=== PATIENT | male | born 1975 | race American Indian/Alaskan Native ===

== ENCOUNTER 2020-09-23 12:55 | Observation (INO) | payer SELFPAY ==
--- NOTE | 2020-09-23 13:04 | Event Note ---
ED Screening Note Date of service: 09/23/20 Time: 13:03 ED Screening Note: 45 yo male presents with CP. This initial assessment/diagnostic orders/clinical plan/treatment(s) is/are subject to change based on patients health status, clinical progression and re- assessment by fellow clinical providers in the ED. Further treatment and workup at subsequent clinical providers discretion. Patient/guardian urged not to elope from the ED as their condition may be serious if not clinically assessed and managed. Initial orders include: Cardiac Protocol.
[2020-09-23 13:21] LABS: Basophils # (Auto) 0.1 K/mm3 (0.0-0.1); Basophils % (Auto) 0.9 % (0.0-1.8); Eosinophils # (Auto) 0.1 K/mm3 (0.0-0.4); Eosinophils % (Auto) 0.6 % (0.0-4.3); Hematocrit 46.9 % (35.5-45.6); Hemoglobin 15.8 gm/dl (11.8-15.2); Lymphocytes # (Auto) 1.7 K/mm3 (1.2-5.4); Lymphocytes % (Auto) 18.5 % (13.4-35.0); Mean Corpuscular HGB Conc 34 % (32-34); Mean Corpuscular Volume 95 fl (84-94); Monocytes # (Auto) 0.7 K/mm3 (0.0-0.8); Monocytes % (Auto) 7.3 % (0.0-7.3); Platelet Count 249 K/mm3 (140-440); Red Blood Count 4.96 M/mm3 (3.65-5.03); Red Cell Distribution Width 13.7 % (13.2-15.2)
--- NOTE | 2020-09-23 13:25 | Emergency Department Report ---
ED Chest Pain HPI - General Chief Complaint: Chest Pain Stated Complaint: CHEST PAIN PUI?: No Time Seen by Provider: 09/23/20 13:20 Source: patient, RN notes reviewed Mode of arrival: Ambulatory Limitations: No Limitations - History of Present Illness Initial Comments: The patient was evaluated in the emergency department for symptoms described in the history of present illness. He/she was evaluated in the context of the [facility] COVID-19 pandemic, which necessitated consideration that the patient might be at risk for infection with the virus that causes COVID-19. Institutional protocols and algorithms that pertain to the evaluation of patients at risk for COVID-19 are in a state of rapid change based on information released by regulatory bodies including the CDC and federal and state organizations. These policies and algorithms were followed during the patient's care in the emergency department. Please note that these policies, procedures and recommendations changed on a rapid basis. Patient is a [id number] male, who works as a regional dedicated truck driver. He has no chronic medical conditions that he is aware of. He does not have a local primary care doctor. Patient believes he drove approximately 8000 miles in his truck in the past month. The patient presents to the ER today with a complaint of nontraumatic right- sided chest pain, that radiates to the back and shoulder. This is associated with shortness of breath. There is no vomiting or diaphoresis. There is no leg pain or leg swelling. No hematemesis or bright red blood per rectum. No urinary symptoms. No loss of taste or smell. No recent aspirin consumption. No cardiac risk ratification that he is aware of Patient does not have a formal diagnosis of sleep apnea that he is aware of. However, he reports that he snores quite loudly, and reports that sleep is not restful. He also reports that he occasionally falls asleep while watching TV or looking at a computer. MD Complaint: chest pain, other -: Sudden Onset: during rest Pain Location: substernal, right chest Pain Radiation: back, neck Severity: moderate Quality: aching Consistency: constant Improves With: nothing Worsens With: nothing Context: recent travel re: dyspnea Treatments Prior to Arrival: none Aspirin use within the Past 7 Days: (0) No - Related Data On Oral Contraceptives: No Previous Rx's Medication Instructions Recorded Last Taken Type Amlodipine Besylate [Norvasc] 5 mg PO QDAY #30 tablet 09/23/20 Unknown Rx Aspirin 325 mg PO QDAY #30 tablet 09/23/20 Unknown Rx Allergies Allergy/AdvReac Type Severity Reaction Status Date / Time No Known Allergies Allergy Unverified 09/23/20 13:00 Heart Score - HEART Score History: Moderately suspicious EKG: Non-specific Age: 45-65 Risk factors: 1-2 risk factors Troponin: < normal limit HEART Score: 4 - Critical Actions Critical Actions: 4-6 pts:12-16.6% risk of adverse cardiac event. Should be admitted ED Review of Systems ROS: Stated complaint: CHEST PAIN Other details as noted in HPI Constitutional: denies: fever, weakness Eyes: denies: eye discharge ENT: congestion Respiratory: shortness of breath Cardiovascular: chest pain, orthopnea Gastrointestinal: denies: abdominal pain, hematemesis, melena, hematochezia Genitourinary: denies: dysuria Musculoskeletal: back pain Neurological: weakness Hematological/Lymphatic: denies: easy bleeding ED Past Medical Hx - Past Medical History Previous Medical History?: No - Surgical History Past Surgical History?: No - Social History Smoking Status: Current Every Day Smoker Substance Use Type: Alcohol - Medications Home Medications: Home Medications Medication Instructions Recorded Confirmed Last Taken Type Amlodipine Besylate [Norvasc] 5 mg PO QDAY #30 tablet 09/23/20 Unknown Rx Aspirin 325 mg PO QDAY #30 tablet 09/23/20 Unknown Rx ED Physical Exam - General Limitations: No Limitations General appearance: alert, in no apparent distress, obese - Head Head exam: Present: atraumatic, normocephalic - Eye Eye exam: Present: normal appearance, EOMI. Absent: nystagmus - ENT ENT exam: Present: normal exam, normal orophraynx, mucous membranes moist, normal external ear exam - Neck Neck exam: Present: normal inspection, full ROM. Absent: tenderness, meningismus - Respiratory Respiratory exam: Present: normal lung sounds bilaterally. Absent: respiratory distress, wheezes, rales, rhonchi, stridor, decreased breath sounds - Cardiovascular Cardiovascular Exam: Present: normal rhythm, tachycardia, normal heart sounds. Absent: systolic murmur, diastolic murmur, rubs, gallop - GI/Abdominal GI/Abdominal exam: Present: soft. Absent: distended, tenderness, guarding, rebound, rigid, pulsatile mass - Rectal Rectal exam: Present: deferred - Extremities Exam Extremities exam: Present: normal inspection, full ROM, other (2+ pulses noted in the bilateral upper and lower extremities. There is no palpable cord. negative Homans sign. Muscular compartments are soft. The pelvis is stable.). Absent: calf tenderness - Back Exam Back exam: Present: normal inspection, full ROM. Absent: tenderness, CVA tenderness (R), CVA tenderness (L), paraspinal tenderness, vertebral tenderness - Neurological Exam Neurological exam: Present: alert, normal gait, other (No facial droop. Tongue midline. Extraocular movements intact bilaterally. Facial sensation intact to light touch in V1, V2, V3 distribution bilaterally. 5 and a 5 strength in 4 extremities. Sensation intact to light touch in 4 extremities.). Absent: motor sensory deficit - Psychiatric Psychiatric exam: Present: normal affect, normal mood - Skin Skin exam: Present: warm, dry, intact, normal color. Absent: rash ED Course Vital Signs 09/23/20 09/23/20 09/23/20 13:02 13:44 13:56 Temperature 98.8 F Pulse Rate 109 H 106 H 102 H Respiratory 18 19 Rate Blood Pressure 183/118 156/107 Blood Pressure 168/109 [Left] O2 Sat by Pulse 96 98 Oximetry - Reevaluation(s) Reevaluation #1: 09/23/20 14:08 Differential diagnosis, including but not limited to: Pulmonary embolism, pericarditis, acute coronary syndrome, aortic disease Assessment and plan: 45-year-old gentleman, obese, who is a regional dedicated truck driver, coming in with sudden onset chest pain that radiates to the back, tachycardia, and hypertension. Very suspicious for pulmonary embolism. I also spoke suspect that the patient has a component of undiagnosed obstructive sleep apnea, probable pulmonary hypertension, and may have a component of right-sided cardiac dysfunction. I appreciate that he has negative D-dimer, however, given his tachycardia, occupation as a regional dedicated truck driver, description of pain clinically, I find the patient cannot be adequately risk ratified by D-dimer alone, as I do not find him to be low pretest probability for pulmonary embolism. I performed a bedside transthoracic echocardiogram, which demonstrated a grossly unremarkable/normal left ventricular ejection fraction, however, there is a questionable pericardial effusion. Patient fairly obese, therefore, this was a technically difficult study. Emergent CT angiogram of the chest is requested. We will treat the patient's symptoms. Patient also at moderate risk for major adverse cardiac event as per heart score. Reassess after initial data points. Have discussed this plan of care with the patient, who verbalizes understanding. Elevated lipase ordered prior to my personal evaluation. There is no abdominal tenderness, rebound or guarding, do not suspect atypical presentation of pancreatitis at this time. Reevaluation #2: 09/23/20 15:31 CT scan of the chest negative for acute findings. Patient moderate risk for major adverse cardiac event as per heart score. Anticipate admission for ac celerated cardiac risk ratification. 09/23/20 15:50 We have strongly recommended admission to the medical service for cardiac risk ratification. I have gone back to discuss this with the patient. The patient does not want to be admitted to the hospital. He is currently alert and oriented x3, clinically sober, and exhibits decision-making capacity. He is free from distracting injury. I specifically explained to the patient that he is at moderate risk for a major adverse cardiac event. I described that he is at risk for , disability, paralysis, permanent loss of quality of life. Th e patient has articulated understanding to this. He will therefore be started on aspirin, instructed to very closely follow-up with outpatient primary care, cardiology, and sleep medicine for probable obstructive sleep apnea, as well as urgent cardiac risk ratification. He is articulated understanding. Return precautions are reviewed. The patient understands that he is leaving against medical recommendations. JOHNNY score - Johnny Score Age > 65: (0) No Aspirin use within the Past 7 Days: (0) No 3 or more CAD Risk Factors: (0) No 2 or more Angina events in past 24 hrs: (0) No Known CAD with more than 50% Stenosis: (0) No Elevated Cardiac Markers: (0) No ST Deviation Greater than 0.5mm: (0) No JOHNNY Score: 0 ED Medical Decision Making - Lab Data Result diagrams: 09/23/20 13:10 09/23/20 13:10 Vital Signs 09/23/20 09/23/20 09/23/20 13:02 13:44 13:56 Temperature 98.8 F Pulse Rate 109 H 106 H 102 H Respiratory 18 19 Rate Blood Pressure 183/118 156/107 Blood Pressure 168/109 [Left] O2 Sat by Pulse 96 98 Oximetry Lab Results 09/23/20 09/23/20 09/23/20 Range/Units 13:10 13:10 13:10 WBC 9.3 (4.5-11.0) K/mm3 RBC 4.96 (3.65-5.03) M/mm3 Hgb 15.8 H (11.8-15.2) gm/dl Hct 46.9 H (35.5-45.6) % MCV 95 H (84-94) fl MCH 32 (28-32) pg MCHC 34 (32-34) % RDW 13.7 (13.2-15.2) % Plt Count 249 (140-440) K/mm3 Lymph % (Auto) 18.5 (13.4-35.0) % [place] % (Auto) 7.3 (0.0-7.3) % Eos % (Auto) 0.6 (0.0-4.3) % Baso % (Auto) 0.9 (0.0-1.8) % Lymph # (Auto) 1.7 (1.2-5.4) K/mm3 [place] # (Auto) 0.7 (0.0-0.8) K/mm3 Eos # (Auto) 0.1 (0.0-0.4) K/mm3 Baso # (Auto) 0.1 (0.0-0.1) K/mm3 Seg Neutrophils % 72.7 H (40.0-70.0) % Seg Neutrophils # 6.7 (1.8-7.7) K/mm3 PT 13.1 (12.2-14.9) Sec. INR 1.00 (0.87-1.13) APTT 32.6 (24.2-36.6) Sec. D-Dimer (0-234) ng/mlDDU Sodium 141 (137-145) mmol/L Potassium 3.9 (3.6-5.0) mmol/L Chloride 102.2 (98-107) mmol/L Carbon Dioxide 28 (22-30) mmol/L Anion Gap 15 mmol/L BUN 9 (9-20) mg/dL Creatinine 1.2 (0.8-1.3) mg/dL Estimated GFR > 60 ml/min BUN/Creatinine Ratio 8 % Glucose 128 H (75-100) mg/dL Calcium 9.8 (8.4-10.2) mg/dL Total Bilirubin 0.50 (0.1-1.2) mg/dL AST 27 (5-40) units/L ALT 17 (7-56) units/L Alkaline Phosphatase 76 (35-129) units/L Troponin T < 0.010 (0.00-0.029) ng/mL Total Protein 7.2 (6.3-8.2) g/dL Albumin 4.6 (3.9-5) g/dL Albumin/Globulin Ratio 1.8 % Lipase 103 H (13-60) units/L 09/23/20 Range/Units 13:10 WBC (4.5-11.0) K/mm3 RBC (3.65-5.03) M/mm3 Hgb (11.8-15.2) gm/dl Hct (35.5-45.6) % MCV (84-94) fl MCH (28-32) pg MCHC (32-34) % RDW (13.2-15.2) % Plt Count (140-440) K/mm3 Lymph % (Auto) (13.4-35.0) % [place] % (Auto) (0.0-7.3) % Eos % (Auto) (0.0-4.3) % Baso % (Auto) (0.0-1.8) % Lymph # (Auto) (1.2-5.4) K/mm3 [place] # (Auto) (0.0-0.8) K/mm3 Eos # (Auto) (0.0-0.4) K/mm3 Baso # (Auto) (0.0-0.1) K/mm3 Seg Neutrophils % (40.0-70.0) % Seg Neutrophils # (1.8-7.7) K/mm3 PT (12.2-14.9) Sec. INR (0.87-1.13) APTT (24.2-36.6) Sec. D-Dimer 145.14 (0-234) ng/mlDDU Sodium (137-145) mmol/L Potassium (3.6-5.0) mmol/L Chloride (98-107) mmol/L Carbon Dioxide (22-30) mmol/L Anion Gap mmol/L BUN (9-20) mg/dL Creatinine (0.8-1.3) mg/dL Estimated GFR ml/min BUN/Creatinine Ratio % Glucose (75-100) mg/dL Calcium (8.4-10.2) mg/dL Total Bilirubin (0.1-1.2) mg/dL AST (5-40) units/L ALT (7-56) units/L Alkaline Phosphatase (35-129) units/L Troponin T (0.00-0.029) ng/mL Total Protein (6.3-8.2) g/dL Albumin (3.9-5) g/dL Albumin/Globulin Ratio % Lipase (13-60) units/L - EKG Data -: EKG Interpreted by Me Rate: tachycardia - EKG Data When compared to previous EKG there are: previous EKG unavailable 09/23/20 14:08 Sinus rhythm, tachycardia, left axis deviation, poor R wave progression, low voltage multiple leads. Q waves noted in the inferior leads. This is an abnormal EKG. This is not a STEMI. - Radiology Data Radiology results: report reviewed, image reviewed CHEST PA AND LATERAL VIEWS INDICATION: Chest Pain. COMPARISON: None. FINDINGS: Support devices: None. Heart: Within normal limits. Lungs/Pleura: No acute pulmonary or pleural findings. IMPRESSION: 1. No acute findings. Signer Name: Yunior Lorenzo MD Signed: 09/23/2020 12:30 PM Workstation Name: [id number] CT angio chest INDICATION / CLINICAL INFORMATION: acute cp, sob, tachycardia, high suspicion for PE. TECHNIQUE: Axial CT images were obtained through the chest after injection of IV contrast. 3 plane MIP and/or 3D reconstructions were produced. All CT scans at this location are performed using CT dose reduction for ALARA by means of automated exposure control. COMPARISON: X-ray chest dated same day. FINDINGS: PULMONARY ARTERIES: No pulmonary emboli. HEART: No significant abnormality. MEDIASTINUM / GANGA: No significant abnormality. LUNGS: Lungs are clear No pleural effusion. No pneumothorax. ADDITIONAL FINDINGS: None. UPPER ABDOMEN: No acute findings. SKELETAL STRUCTURES: No significant osseous abnormality. IMPRESSION: 1. No CT evidence for pulmonary embolism. 2. No acute findings. Signer Name: Jordan Zaman MD Signed: 09/23/2020 2:01 PM Workstation Name: [id number] [id number] Critical care attestation.: If time is entered above; I have spent that time in minutes in the direct care of this critically ill patient, excluding procedure time. ED Disposition Clinical Impression: Acute chest pain, Abnormal EKG, Elevated blood pressure reading Disposition: LEFT AGAINST MED ADVICE Is pt being admited?: No Does the pt Need Aspirin: No Condition: Undetermined
[2020-09-23 13:32] LABS: Partial Thromboplastin Time 32.6 Sec. (24.2-36.6)
--- NOTE | 2020-09-23 13:34 | XRay Report ---
CHEST PA AND LATERAL VIEWS INDICATION: Chest Pain. COMPARISON: None. FINDINGS: Support devices: None. Heart: Within normal limits. Lungs/Pleura: No acute pulmonary or pleural findings. IMPRESSION: 1. No acute findings. Signer Name: Yunior Lorenzo MD Signed: 09/23/2020 1:30 PM Workstation Name: [id number]
[2020-09-23] MEDS ORDERED: NITROGLYCERIN 0.4 MG TAB SUBL SL PRN (13:43)
[2020-09-23] MEDS ORDERED: SODIUM CHLORIDE 0.9% 250ML 250 ML IV ONE (13:43)
[2020-09-23 13:46] LABS: Alanine Aminotransferase 17 units/L (7-56); Albumin 4.6 g/dL (3.9-5); BUN/Creatinine Ratio 8; Blood Urea Nitrogen 9 mg/dL (9-20); Calcium 9.8 mg/dL (8.4-10.2); Hemolysis Index 5
--- NOTE | 2020-09-23 15:05 | Cat Scan Report ---
CT angio chest INDICATION / CLINICAL INFORMATION: acute cp, sob, tachycardia, high suspicion for PE. TECHNIQUE: Axial CT images were obtained through the chest after injection of IV contrast. 3 plane MIP and/or 3D reconstructions were produced. All CT scans at this location are performed using CT dose reduction f or ALARA by means of automated exposure control. COMPARISON: X-ray chest dated same day. FINDINGS: PULMONARY ARTERIES: No pulmonary emboli. HEART: No significant abnormality. MEDIASTINUM / GANGA: No significant abnormality. LUNGS: Lungs are clear No pleural effusion. No pneumothorax. ADDITIONAL FINDINGS: None. UPPER ABDOMEN: No acute findings. SKELETAL STRUCTURES: No significant osseous abnormality. IMPRESSION: 1. No CT evidence for pulmonary embolism. 2. No acute findings. Signer Name: Jordan Zaman MD Signed: 09/23/2020 3:01 PM Workstation Name: [id number]
[2020-09-23] MEDS ORDERED: ALBUTEROL 2.5 MG/3 ML NEBU IH PRN (15:41)
[2020-09-23] MEDS ORDERED: ACETAMINOPHEN 325 MG TAB PO PRN (15:41)
[2020-09-23] MEDS ORDERED: ONDANSETRON 4 MG/2 ML INJ IV PRN (15:41)
--- NOTE | 2020-09-23 15:42 | History and Physical Report ---
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 The patient presents to the ER today with a complaint of nontraumatic right- sided chest pain, that radiates to the back and shoulder. This is associated with shortness of breath. There is no vomiting or diaphoresis. There is no leg pain or leg swelling. No hematemesis or bright red blood per rectum. No urinary symptoms. No loss of taste or smell. No recent aspirin consumption. No cardiac risk ratification that he is aware of Patient does not have a formal diagnosis of sleep apnea that he is aware of. However, he reports that he snores quite loudly, and reports that sleep is not restful. He also reports that he occasionally falls asleep while watching TV or looking at a computer. MD Complaint: chest pain, other -: Sudden Onset: during rest Pain Location: substernal, right chest Pain Radiation: back, neck Severity: moderate Quality: aching Consistency: constant Improves With: nothing Worsens With: nothing Context: recent travel re: dyspnea Treatments Prior to Arrival: none Aspirin use within the Past 7 Days: (0) No - Related Data On Oral Contraceptives: No Allergies Allergy/AdvReac Type Severity Reaction Status Date / Time No Known Allergies Allergy Unverified 09/23/20 13:00 Heart Score - HEART Score History: Moderately suspicious EKG: Non-specific Age: 45-65 Risk factors: 1-2 risk factors Troponin: < normal limit HEART Score: 4 - Critical Actions Critical Actions: 4-6 pts:12-16.6% risk of adverse cardiac event. Should be admitted ED Review of Systems ROS: Stated complaint: CHEST PAIN Other details as noted in HPI Constitutional: denies: fever, weakness Eyes: denies: eye discharge ENT: congestion Respiratory: shortness of breath Cardiovascular: chest pain, orthopnea Gastrointestinal: denies: abdominal pain, hematemesis, melena, hematochezia Genitourinary: denies: dysuria Musculoskeletal: back pain Neurological: weakness Hematological/Lymphatic: denies: easy bleeding ED Past Medical Hx - Past Medical History Previous Medical History?: No - Surgical History Past Surgical History?: No - Social History Smoking Status: Current Every Day Smoker Substance Use Type: Alcohol Medications and Allergies Allergies Allergy/AdvReac Type Severity Reaction Status Date / Time No Known Allergies Allergy Unverified 09/23/20 13:00 Active Meds: Active Medications Nitroglycerin (Nitroglycerin 0.4 Mg Tab Subl) 0.4 mg SL .Q5MIN PRN PRN Reason: Chest Pain Last Admin: 09/23/20 13:56 Dose: 0.4 mg Documented by: Exam - Constitutional Vitals: Temp Pulse Resp BP Pulse Ox 98.8 F 102 H 19 156/107 98 09/23/20 13:02 09/23/20 13:56 09/23/20 13:44 09/23/20 13:56 09/23/20 13:44 HEART Score - HEART Score EKG: Non-specific Age: 45-65 Risk factors: 1-2 risk factors Troponin: Troponin T < 0.010 ng/mL (0.00-0.029) 09/23/20 13:10 Troponin: < normal limit - Critical Actions Critical Actions: 4-6 pts:12-16.6% risk of adverse cardiac event. Should be admitted Results - Labs CBC & Chem 7: 09/23/20 13:10 09/23/20 13:10 Labs: Abnormal lab results 09/23/20 09/23/20 09/23/20 Range/Units 13:10 13:10 13:10 Hgb 15.8 H (11.8-15.2) gm/dl Hct 46.9 H (35.5-45.6) % MCV 95 H (84-94) fl Seg Neutrophils % 72.7 H (40.0-70.0) % Glucose 128 H (75-100) mg/dL Total Creatine Kinase 598 H (55-170) units/L Lipase 103 H (13-60) units/L
[2020-09-23 16:45] VITALS: BP 153/102
[2020-09-23] MEDS ORDERED: FAMOTIDINE 20 MG TAB PO SCH (22:00)
== END 2020-09-23 16:49 | disposition left against medical advice (07) ==
LOC: ED 12:55 → 4A 15:41
PROVIDERS: ADMIT Internal Medicine; ATTEND Internal Medicine
DX: I20.8 Other forms of angina pectoris (principal); R07.89 Other chest pain; R94.31 Abnormal electrocardiogram [ECG] [EKG]; R03.0 Elevated blood-pressure reading, without diagnosis of hypertension; F17.200 Nicotine dependence, unspecified, uncomplicated; Z79.82 Long term (current) use of aspirin; Z79.899 Other long term (current) drug therapy
CPT/HCPCS: 36415; 71046; 71275; 80053; 82550; 83690; 83735; 83880; 84484; 85025; 85379; 85610; 85730; 93005; 99285; G0378; J7050; Q9967

== ENCOUNTER 2022-03-06 11:57 | Emergency (ER) | payer OTHER ==
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
[2022-03-06] MEDS ORDERED: IBUPROFEN 800 MG TAB PO ONE (15:10)
[2022-03-06 15:53] VITALS: BP 140/92
== END 2022-03-06 16:00 | disposition home or self-care (01) ==
LOC: ED 11:57
DX: S60.211A Contusion of right wrist, initial encounter (principal); T14.8XXA Other injury of unspecified body region, initial encounter; I10 Essential (primary) hypertension; V89.2XXA Person injured in unspecified motor-vehicle accident, traffic, initial encounter; Y93.89 Activity, other specified; Y92.89 Other specified places as the place of occurrence of the external cause; Y99.8 Other external cause status
CPT/HCPCS: 99283